=== PATIENT | female | born 1990 | race Caucasian/White ===

== ENCOUNTER 2016-07-22 10:37 | Emergency (ER) | payer MEDICAID ==
[2016-07-22 10:42] VITALS: RESP 16; TEMP 97.7; O2SAT 97
[2016-07-22] MEDS ORDERED: ONDANSETRON 4 MG/2 ML VIAL IVP ONE (10:47)
[2016-07-22] MEDS ORDERED: NS 1,000 ML IV ONE (10:55)
[2016-07-22 11:15] LABS: % IMMATURE GRANULYOCYTES 0.5 % (0.0-1.1); ABSOLUTE IMMATURE GRANULOCYTES 0.07 10^3/uL (0.00-0.10); ADD DIFF? NO; ADD MORPH? NO; ADD SCAN? NO; ATYPICAL LYMPHOCYTE FLAG 20 (0-99); FRAGMENT RBC FLAG 0 (0-99); HEMATOCRIT 42.3 % (38.0-47.0); HEMOGLOBIN 14.7 g/dL (12.6-16.3); LEFT SHIFT FLG 0 (0-99); LIPEMIA HEMOLYSIS FLAG 90 (0-99); MEAN CELL HEMOGLOBIN 32.2 pg (27.9-34.1); MEAN CELL HEMOGLOBIN CONCENTR. 34.8 g/dL (32.4-36.7); MEAN CELL VOLUME 92.8 fL (81.5-99.8); PLATELET CLUMPS FLAG 20 (0-99); PLATELET COUNT 295 10^3/uL (150-400); RED BLOOD CELL COUNT 4.56 10^6/uL (4.18-5.33); RED CELL DISTRIBUTION WIDTH 12.2 % (11.5-15.2)
[2016-07-22 11:26] LABS: ANION GAP 17 mEq/L (8-16); CARBON DIOXIDE 22 mEq/l (22-31); CHLORIDE 105 mEq/L (97-110); CREATININE 0.7 mg/dL (0.6-1.0); GLOMERULAR FILTRATION RATE > 60; GLUCOSE 82 mg/dL (70-100); POTASSIUM 4.3 mEq/L (3.5-5.2); SODIUM 144 mEq/L (134-144)
--- NOTE | 2016-07-22 13:38 | EDPHY ---
HPI/HX/ROS/PE/MDM Narrative: Chief complaint: nausea and vomiting HPI: 25-year-old female who flew back from [place] yesterday. She states that while the airport yesterday afternoon she had several beers but stopped drinking by a 7 or 8 o'clock at night. When she returned the here last night she began drinking once again. Also states that she did use some marijuana. States she is a daily marijuana user, only drinks a couple days a week. She woke up out 4 o'clock this morning with nausea and multiple episodes of vomiting. He has not been able to keep anything down. No diarrhea or constipation. Has had some abdominal cramping. No fevers or chills. Last menstrual period was 2 weeks ago was normal. Does not believe she is . ROS: 10 point Review of Systems is negative except as noted in the HPI. Physical exam: Gen: Awake, Alert, No Distress HEENT: Nose: no rhinorrhea Eyes: PERRLA, EOMI Mouth: Moist mucosa Neck: Supple, no JVD Chest: nontender, lungs clear to auscultation Heart: S1, S2 normal, no murmur Abd: Soft, non-tender, no guarding Back: no CVA tenderness, no midline tenderness Ext: no edema, non-tender Skin: no rash Neuro: CN II-XII intact, Sensation grossly intact, Strength 5/5 in bilateral upper and lower extremities ED Course: 25-year-old with nausea vomiting after heavy drinking and marijuana use overnight. She has a benign exam. She does have leukocytosis which is consistent with demargination from her vomiting. Her electrolytes are normal. She is not . She has received IV fluids and Zofran here. She is feeling much better. She is tolerating p.o. fluids. Will plan will be to discharge with follow-up as an outpatient. She has been encouraged to curb her alcohol and marijuana use. - Data Points Laboratory Results: Laboratory Results 07/22/16 10:56 07/22/16 10:56 07/22/16 10:56 WBC 14.04 H 10^3/uL (3.80-9.50) RBC 4.56 10^6/uL (4.18-5.33) Hgb 14.7 g/dL (12.6-16.3) Hct 42.3 % (38.0-47.0) MCV 92.8 fL (81.5-99.8) MCH 32.2 pg (27.9-34.1) MCHC 34.8 g/dL (32.4-36.7) RDW 12.2 % (11.5-15.2) Plt Count 295 10^3/uL (150-400) MPV 10.0 fL (8.7-11.7) Neut % (Auto) 81.3 H % (39.3-74.2) Lymph % (Auto) 11.5 L % (15.0-45.0) Kaufman % (Auto) 6.3 % (4.5-13.0) Eos % (Auto) 0.1 L % (0.6-7.6) Baso % (Auto) 0.3 % (0.3-1.7) Nucleat RBC Rel Count 0.0 % (0.0-0.2) Absolute Neuts (auto) 11.42 H 10^3/uL (1.70-6.50) Absolute Lymphs (auto) 1.62 10^3/uL (1.00-3.00) Absolute Monos (auto) 0.88 H 10^3/uL (0.30-0.80) Absolute Eos (auto) 0.01 L 10^3/uL (0.03-0.40) Absolute Basos (auto) 0.04 10^3/uL (0.02-0.10) Absolute Nucleated RBC 0.00 10^3/uL (0-0.01) Immature Gran % 0.5 % (0.0-1.1) Immature Gran # 0.07 10^3/uL (0.00-0.10) Sodium 144 mEq/L (134-144) Potassium 4.3 mEq/L (3.5-5.2) Chloride 105 mEq/L (97-110) Carbon Dioxide 22 mEq/l (22-31) Anion Gap 17 mEq/L (8-16) BUN 14 mg/dL (7-23) Creatinine 0.7 mg/dL (0.6-1.0) Estimated GFR > 60 Glucose 82 mg/dL (70-100) Calcium 10.0 mg/dL (8.5-10.4) Beta HCG, Qual NEGATIVE Medications Given: Discontinued Medications Sodium Chloride (Ns) 1,000 mls @ 0 mls/hr IV EDNOW ONE PRN Reason: Wide Open Stop: 07/22/16 10:56 Last Admin: 07/22/16 10:55 Dose: 1,000 mls Ondansetron HCl (Zofran) 4 mg IVP EDNOW ONE Stop: 07/22/16 10:48 Last Admin: 07/22/16 11:00 Dose: 4 mg General Time Seen by Provider: 07/22/16 12:13 Initial Vital Signs: Initial Vital Signs Temperature (C) 36.5 C 07/22/16 10:39 Heart Rate 92 07/22/16 10:39 Respiratory Rate 16 07/22/16 10:39 Blood Pressure 120/86 H 07/22/16 10:39 O2 Sat (%) 97 07/22/16 10:39 O2 Delivery Mode Room Air Allergies/Adverse Reactions: No Known Allergies Allergy (Unverified 07/22/16 10:42) Departure - Departure Disposition: Home, Routine, Self-Care Clinical Impression: Vomiting Condition: Good Instructions: Dehydration (ED), Acute Nausea and Vomiting (ED) Additional Instructions: Try to decrease your alcohol consumption. Also try to decrease your water consumption as this is been shown to cause abdominal pain nausea and vomiting in habitual user. Follow up with her primary care physician in 2-3 days for any concerns.
[2016-07-22] MEDS ORDERED: ONDANSETRON 4MG PREPACK#2 BTL TAKEHOME ONE ×2 (13:52)
[2016-07-22 13:58] VITALS: BP 118/76; PULSE 84
== END 2016-07-22 13:58 | disposition home or self-care (01) ==
DX: R11.10 Vomiting, unspecified (principal)
CPT/HCPCS: 96374; J2405